=== PATIENT | female | born 1990 | race Caucasian/White ===

== ENCOUNTER → 2020-12-15 14:00 | Outpatient (BNVA) | payer BC, SELFPAY | PROVIDERS: Family Provider Family Medicine; PCP Family Medicine; Visit Provider Obstetrics & Gynecology | DX: Z34.90 Encounter for supervision of normal pregnancy, unspecified, unspecified trimester (principal) | CPT/HCPCS: 84144; 84702 ==

== ENCOUNTER → 2021-01-05 09:33 | Outpatient (BNVA) | payer BC, SELFPAY | PROVIDERS: Family Provider Family Medicine; PCP Family Medicine; Visit Provider Obstetrics & Gynecology | DX: Z34.90 Encounter for supervision of normal pregnancy, unspecified, unspecified trimester (principal) | CPT/HCPCS: 36415; 84144 ==

== ENCOUNTER 2022-05-17 12:59 | Outpatient (CLI) | payer BC, MEDICAID, SELFPAY ==
--- NOTE | 2022-05-17 13:03 | US_ITS ---
WS: [id number] TRANSABDOMINAL PELVIC AND TRANSVAGINAL PELVIC ULTRASOUND HISTORY: LEFT OVARIAN CYST/PELVIC PAIN COMPARISON: 09/30/2006 Uterus: 8.9 cm x 7.2 cm x 4.4 cm. Anteverted, slightly retroflexed uterus. On the transvaginal images the uterus becomes retroflexed. No fibroid or mass identified. Normal endometrium. Endometrium: 1.2 cm. Normal. Right ovary: 3.4 cm x 2.0 cm x 2.2 cm. Normal size ovary. Very small complex follicle associated with the ovary. Normal vascularity. Left ovary: 3.4 cm x 2.1 cm x 1.9 cm. Normal size and vascularity. Smaller free fluid in the fundus of the uterus. US/US pelvic with transvaginal IMPRESSION: Normal, unremarkable pelvic ultrasound.
== END 2022-05-17 13:00 | disposition home or self-care (01) ==
LOC: RAD 12:59
PROVIDERS: Family Provider Family Medicine; PCP Obstetrics & Gynecology; Visit Provider Obstetrics & Gynecology
DX: N83.202 Unspecified ovarian cyst, left side (principal); R10.2 Pelvic and perineal pain
CPT/HCPCS: 76830; 76856

== ENCOUNTER → 2022-08-29 13:56 | Outpatient (BNVA) | payer BC, MEDICAID, SELFPAY | PROVIDERS: Family Provider Family Medicine; PCP Obstetrics & Gynecology; Visit Provider Nurse Practitioner Family | DX: J02.9 Acute pharyngitis, unspecified (principal); R50.9 Fever, unspecified | CPT/HCPCS: 87071; 87400; 87880 ==

== ENCOUNTER → 2023-02-11 16:32 | Outpatient (BNVA) | payer BC, MEDICAID, SELFPAY | PROVIDERS: Family Provider Family Medicine; PCP Obstetrics & Gynecology; Visit Provider Nurse Practitioner Family | DX: E05.00 Thyrotoxicosis with diffuse goiter without thyrotoxic crisis or storm (principal); E55.9 Vitamin D deficiency, unspecified; E53.8 Deficiency of other specified B group vitamins; D64.9 Anemia, unspecified; E61.1 Iron deficiency | CPT/HCPCS: 80053; 82306; 82607; 82728; 83516; 83550; 83735; 84439; 84480; 85025 ==

== ENCOUNTER → 2023-09-04 09:19 | Outpatient (BNVA) | payer BC, MEDICAID, SELFPAY | PROVIDERS: Family Provider Family Medicine; PCP Obstetrics & Gynecology; Visit Provider Nurse Practitioner Family | DX: R10.9 Unspecified abdominal pain (principal) | CPT/HCPCS: 74018; 80053; 85025 ==

== ENCOUNTER 2023-12-30 12:57 | Emergency (ER) | payer BC, MEDICAID, SELFPAY ==
[2023-12-30 13:03] VITALS: BP 134/84; PULSE 126; RESP 20; TEMP 36.7; O2SAT 98
[2023-12-30 13:36] VITALS: BP 113/96; PULSE 98; RESP 17; O2SAT 99
--- NOTE | 2023-12-30 13:53 | US_ITS ---
WS: [id number] US transvaginal [id number] HISTORY: pelvic pain COMPARISON: 05/17/2022 Uterus: 8.7 cm x 5.7 cm x 4.9 cm. Normal size retroverted uterus. No fibroid or mass identified. Endometrium: 0.5 cm. Normal. Normal junctional zone. Right ovary: 3.1 cm x 1.9 cm x 2.7 cm. Normal size and vascularity, no cystic or solid masses. Multip le small follicles. Left ovary: 4.1 cm x 2.2 cm x 3.5 cm. Normal size and vascularity, no cystic or solid masses. Multipl e small follicles. Physiologic free fluid in the cul-de-sac. IMPRESSION: Normal transvaginal pelvic ultrasound.
--- NOTE | 2023-12-30 13:53 | CT_ITS ---
WS: [id number] CT ABDOMEN AND PELVIS NONCONTRAST HISTORY: LUQ/LLQ pain TECHNIQUE: Imaging performed through the abdomen and pelvis. Coronal and sagittal reformats are submi tted. All CT scans at [facility] use at least one of these dose optimization techniques: auto mated exposure control; mA and/or kV adjustment per patient size (includes targeted exams where dose is matched to clinical indication); or iterative reconstruction. DLP: 545.03 mGy.cm COMPARISON: 11/08/2009 Lower thorax: Lung bases are clear. Visualized heart is normal. No hiatal hernia. Bilateral breast im plants. Liver: Normal size liver. Variable density within the liver consistent with areas of hepatic steatosi s and sparing. No bile duct dilatation. Gallbladder: Contracted gallbladder. No adjacent inflammation. Pancreas: Normal size and attenuation. Normal pancreatic duct. No pancreatitis or mass. Spleen: Normal. Adrenal glands: Normal. No mass. Right kidney: Normal size kidney with no mass or hydronephrosis. Left kidney: Normal size kidney with no mass or hydronephrosis. Aorta: Normal abdominal aorta, no aneurysm or atherosclerosis. No free fluid, intraperitoneal air or significant lymphadenopathy. Nonpathologic lymph nodes RIGHT lo wer quadrant. GI tract: Normally distended stomach. No wall thickening. No small bowel obstruction. Normal appendix . No obstructive pattern. No colitis. Abdominal wall: Negative. No hernia. Pelvis: Negative. Osseous structures: Unremarkable. IMPRESSION: 1. No acute abdominal or pelvic abnormalities. 2. No renal stone or obstruction. No colitis. 3. Normal appendix.
[2023-12-30 14:07] LABS: HCG Qualitative Urine. Negative (Negative)
[2023-12-30 14:08] LABS: Basophils % 0.4 %; Eosinophils # 0.2 10^3/uL (0.0-0.8); Eosinophils % 1.7 %; Hematocrit 36.7 % (36-47); Lymphocytes # 2.5 10^3/uL (0.8-4.8); Lymphocytes % 25.4 %; Mean Corpuscular HGB Conc 32.7 g/dL (30-55); Mean Corpuscular Hemoglobin 29.7 pg (27-33); Mean Corpuscular Volume 90.8 fl (85-98); Mean Platelet Volume 9.1 fL (7.4-10.4); Monocytes # 0.5 10^3/uL (0.2-0.9); Monocytes % 4.8 %; Neutrophils # 6.52 10^3/uL (1.8-7.7); Neutrophils % 67.5 %; Nucleated Red Blood Cells % 0 %; Platelet Count 331 10^3/cmm (157-399); Red Blood Count 4.04 10^6/uL (3.85-5.65); White Blood Count 9.65 10^3/uL (3.29-11.43)
[2023-12-30 14:21] LABS: Alanine Aminotransferase 10 U/L (0-33); Albumin Level 4.5 g/dL (3.5-5.2); Alkaline Phosphatase 50 U/L (35-105); Anion Gap 12.8 (5-19); Aspartate Amino Transferase 12 U/L (0-32); Blood Urea Nitrogen 11 mg/dL (6-20); Calcium 9.2 mg/dL (8.5-10.5); Carbon Dioxide 26 mmol/L (22-29); Chloride 104 mmol/L (98-107); Creatinine Clr Calc Pharmacy 117.4973; Globulin 2.7 g/dL (1.3-4.6); Glomerular Filtration Rate 82.6 mL/min (90-130); Glucose 135 mg/dL (65-115); Lipase 29 U/L (13-60); Osmolality Calculated 289 mOsm/kg (285-295); Potassium 3.8 mmol/L (3.5-5.1); Sodium 139 mmol/L (136-145); Total Bilirubin 0.2 mg/dL (0.15-1.2); Total Protein 7.2 g/dL (6.6-8.7)
[2023-12-30 14:38] LABS: Add Urine Microscopic? YES; Bilirubin Urine Neg (Negative); Blood Urine 2+ (Negative); Glucose Urine UA Norm (Normal); Ketones Urine Negative (Negative); Leukocyte Esterase Urine Negative (Negative); Nitrate Urine Negative (Negative); Protein Urine Neg (Negative); Specific Gravity, Urine 1.005 (1.005-1.030); Urine Appearance Clear (CLEAR); Urine Color Light yellow (Yellow); Urobilinogen Urine Norm (Negative); pH Urine 5 (5-7)
[2023-12-30 14:40] LABS: Add Urine Culture? No; Bacteria Urine TRACE /hpf; RBC Urine 0-4 /hpf (0-2); Squamous Epithelial Cell Urine 0-4 /hpf (0-5)
--- NOTE | 2023-12-30 14:51 | ED_ITS ---
Documented by User: [email or web address] Fuentes 12/30/23 16:39 HPI - Abdominal Pain 2 General: Chief Complaint: Abdominal Pain Stated Complaint: abd pain Time Seen by Provider: 12/30/23 13:04 Source: patient Mode of arrival: ambulatory Limitations: no limitations History of Present Illness: Patient is a 33-year-old female presenting to the emergency department complaining of left-sided abdominal pain. When asked how long the patient has had the pain, she notes for a while and that last week she had an ultrasound that incidentally found an enlarged spleen. She notes that the ultrasound was supposed to be for transvaginal evaluation as she is having coinciding left lower quadrant pain. She reports that she has also had this pain for a while and that she is due to have an MRI soon, as she is allergic to the contrast dye and has been unable to get a CT. She notes a history of Graves' disease, noting that she is in remission and is not currently on any thyroid medications. She denies any urinary symptoms or vaginal symptoms. She denies history of kidney stone. She notes that the pain feels like 2 separate things as it is localized in the left upper quadrant, as well as left lower quadrant/suprapubic region. She denies any fevers, nausea or vomiting, or changes in bowel habits. Her pain seems to be intermittent as she notes that on the drive here she had an episode of getting very lightheaded and dizzy due to the pain. She denies possibility of . MD elicited complaint: abdominal pain Pertinent past history: other (Graves' disease) Onset (ago): unknown Pain Consistency: intermittent Location: LUQ and LLQ Severity: similar to previous episodes Radiation: none Migration to: no migration Exacerbating factors: nothing Relieving factors: nothing Associated Symptoms: Denies bloating, change in stool character, chills, constipation, diarrhea, dysuria, fever(s), hematochezia, nausea and vomiting Review of Systems 2 General: Reports: 10 or more systems reviewed and unremarkable except in HPI and below Const: Denies: fever(s), chills, change in appetite, change in weight or diaphoresis ENMT: Denies: throat pain or hoarseness Card: Reports: lightheadedness; Denies: chest pain or palpitations Resp: Denies: dyspnea, productive cough or wheezing GI: Reports: abdominal pain; Denies: nausea, vomiting, diarrhea, constipation, bloating, change in stool character or hematochezia : Denies: flank pain, difficulty voiding, dysuria, urinary frequency or urinary urgency Musc: Denies: neck pain or back pain Skin/Breast: Denies: rash or new lesions Neuro: Reports: dizziness; Denies: headache(s) PFSH ED 2 PFSH: Social History Smoking and tobacco/nicotine status: never used tobacco/nicotine Alcohol intake: never Substance/Drug Use: never Physical Exam 2 Const: COMMON NORMALS: average body habitus, patient oriented x3, no limitations, healthy appearing, alert and well nourished GENERAL APPEARANCE: cooperative, in distress (Pacing around the room in pain) and anxious O RIENTATION/CONSCIOUSNESS: Yes awake HENMT: COMMON NORMALS: normocephalic, atraumatic, hearing grossly normal bilaterally, external ears normal, Normal external nose present, Normal nasal mucous membranes and turbinates present and moist oral mucous membranes HEAD & SCALP: normocephalic and atraumatic NOSE: Normal external nose present and Normal nasal mucous membranes and turbinates present EXTERNAL EAR: Yes external ears normal Eye: COMMON NORMALS: Equal, round and reactive pupils present, EOMs intact bilaterally, conjunctivae normal and normal visual navarrete by confrontation C ONJUNCTIVA: Yes conjunctivae normal PUPIL: Yes Equal, round and reactive pupils present Neck/C-Spine: COMMON NORMALS: full ROM, supple, no meningeal signs and no JVD Resp: COMMON NORMALS: normal respiratory effort, No retractions, No use of accessory muscles and clear to auscultation bilaterally AUSCULTATION: clear to auscultation bilaterally, no crackles, no rales, no rhonchi and no wheezes Cardio: COMMON NORMALS: no JVD, regular rate, regular rhythm, S1 normal heart sound present, S2 normal heart sound present, No gallops present (Cardio), No clicks present (Cardio), No murmurs present (Cardio), No rub (Cardio) and Peripheral pulses 2+ throughout RATE: regular rate RHYTHM: regular rhythm HEART SOUNDS: S1 normal heart sound present and S2 normal heart sound present PERIPHERAL PULSES: Peripheral pulses 2+ throughout GI: COMMON NORMALS: Normal to inspection, nondistended, normoactive bowel sounds present, Soft to palpation and no masses AUSCULTATION: Yes normoactive bowel sounds PALPATION: Yes Soft to palpation, Yes Tenderness to palpation present (GI) Details: LLQ and LUQ, No Guarding due to palpation present (GI) and No Rigid due to palpation RECTAL EXAM: deferred : COMMON NORMALS: Yes no CVA tenderness BLADDER/KIDNEY EXAM: Yes no CVA tenderness Back/Pelvis: COMMON NORMALS: no CVA tenderness Extremity: COMMON NORMALS: normal to inspection and full ROM Neuro: COMMON NORMALS: patient oriented x3, moves all extremities, no focal motor deficits and no sensory deficits noted SENSORIUM/ORIENTATION: Yes alert MENINGEAL SIGNS: Yes no meningeal signs Psych: COMMON NORMALS: mental status grossly normal, cooperative and speech normal SPEECH: Yes normal speech Skin: COMMON NORMALS: no rashes or lesions noted GENERAL SKIN EXAM: no rashes or lesions noted Course 2 Vital Signs: Vital signs: Vital Signs Temperature 98.0 F 12/30/23 13:03 Pulse Rate 91 12/30/23 16:34 Respiratory Rate 16 12/30/23 16:34 Blood Pressure 129/84 12/30/23 16:34 Pulse Oximetry 99 12/30/23 16:34 Oxygen Delivery Me thod Room Air 12/30/23 15:36 MDM - Abdominal Pain Medical Decision Making This patient seen and evaluated in the emergency department today for acute on chronic left sided abdominal pain. Patient notes she had this pain previously worked up with an ultrasound that was unintentional and showed some reported splenomegaly. She notes that she has had the left lower quadrant pain for some time, and has been in talks with her primary care about get an MRI. However she is here today saying the pain is the worst ever been. She has gotten no relief from her [id number] remedies. Vitals on arrival unremarkable and she has remained stable throughout her ED course. Exam remarkable for some reproducible tenderness palpation of the left upper and left lower quadrant. Basic lab workup was negative, including normal CBC, CMP, lipase, TSH, and UA. Her EKG was also unremarkable. Pelvic ultrasound unremarkable. CT without contrast did not demonstrate any acute abdominal findings. She did note a history of Graves' disease, my reason for obtaining a TSH. She also notes that she is allergic to contrast dye, also reason for not obtaining CT with contrast. I believe patient's pain is most likely musculoskeletal in nature, as upon recheck following administration of Toradol, she notes improvement of the left lower quadrant pain and minimal improvement of the left upper quadrant pain. However, I cannot fully rule out a mesenteric ischemia/thrombus, though my clinical suspicion is very low at this time. I did have a thorough conversation with her in regards to reasons to return, including significant worsening of pain or changes in bowel habit. I did inform her to continue follow-up with primary care to obtain MRI if necessary. Other return precautions are given and patient agrees with discharge home. Lab Data I reviewed the patient's lab results. 12/30/23 13:38 12/30/23 13:38 Labs/Radiology: Laboratory Results WBC 9.65 10^3/uL (3.29-11.43) 12/30/23 13:38 RBC 4.04 10^6/uL (3.85-5.65) 12/30/23 13:38 Hgb 12.00 g/dL (11.27-16.99) 12/30/23 13:38 Hct 36.7 % (36-47) 12/30/23 13:38 MCV 90.8 fl (85-98) 12/30/23 13:38 MCH 29.7 pg (27-33) 12/30/23 13:38 MCHC 32.7 g/dL (30-55) 12/30/23 13:38 RDW 13.0 % (12.1-15.1) 12/30/23 13:38 Plt Count 331 10^3/cmm (157-399) 12/30/23 13:38 MPV 9.1 fL (7.4-10.4) 12/30/23 13:38 Neut % (Auto) 67.5 % 12/30/23 13:38 Lymph % (Auto) 25.4 % 12/30/23 13:38 [place] % (Auto) 4.8 % 12/30/23 13:38 Eos % (Auto) 1.7 % 12/30/23 13:38 Baso % (Auto) 0.4 % 12/30/23 13:38 Neut # (Auto) 6.52 10^3/uL (1.8-7.7) 12/30/23 13:38 Lymph # (Auto) 2.5 10^3/uL (0.8-4.8) 12/30/23 13:38 [place] # (Auto) 0.5 10^3/uL (0.2-0.9) 12/30/23 13:38 Eos # (Auto) 0.2 10^3/uL (0.0-0.8) 12/30/23 13:38 Baso # (Auto) 0.0 10^3/uL (0.0-0.1) 12/30/23 13:38 Nucleated RBC % (auto) 0 % 12/30/23 13:38 Nucleated RBCs # 0.0 /100WBC 12/30/23 13:38 Sodium 139 mmol/L (136-145) 12/30/23 13:38 Potassium 3.8 mmol/L (3.5-5.1) 12/30/23 13:38 Chloride 104 mmol/L (98-107) 12/30/23 13:38 Carbon Dioxide 26 mmol/L (22-29) 12/30/23 13:38 Anion Gap 12.8 (5-19) 12/30/23 13:38 BUN 11 mg/dL (6-20) 12/30/23 13:38 Creatinine 0.8 mg/dL (0.5-0.9) 12/30/23 13:38 GFR Calculation 82.6 mL/min (90-130) L 12/30/23 13:38 Glucose 135 mg/dL (65-115) H 12/30/23 13:38 Calculated Osmolality 289 mOsm/kg (285-295) 12/30/23 13:38 Calcium 9.2 mg/dL (8.5-10.5) 12/30/23 13:38 Total Bilirubin 0.2 mg/dL (0.15-1.2) 12/30/23 13:38 AST 12 U/L (0-32) 12/30/23 13:38 ALT 10 U/L (0-33) 12/30/23 13:38 Alkaline Phosphatase 50 U/L (35-105) 12/30/23 13:38 Total Protein 7.2 g/dL (6.6-8.7) 12/30/23 13:38 Albumin 4.5 g/dL (3.5-5.2) 12/30/23 13:38 Globulin 2.7 g/dL (1.3-4.6) 12/30/23 13:38 Lipase 29 U/L (13-60) 12/30/23 13:38 TSH 0.76 uIU/mL (0.27-4.20) 12/30/23 13:38 HCG, Qual Negative (Negative) 12/30/23 13:35 Urine Color Light yellow (Yellow) 12/30/23 13:35 Urine Appearance Clear (CLEAR) 12/30/23 13:35 Urine pH 5 (5-7) 12/30/23 13:35 Ur Specific [place] 1.005 (1.005-1.030) 12/30/23 13:35 Urine Protein Neg (Negative) 12/30/23 13:35 Urine Glucose (UA) Norm (Normal) 12/30/23 13:35 Urine Ketones Negative (Negative) 12/30/23 13:35 Urine Blood 2+ (Negative) H 12/30/23 13:35 Urine Nitrate Negative (Negative) 12/30/23 13:35 Urine Bilirubin Neg (Negative) 12/30/23 13:35 Urine Urobilinogen Norm mg/dL (Negative) 12/30/23 13:35 Ur Leukocyte Esterase Negative (Negative) 12/30/23 13:35 Urine RBC 0-4 /hpf (0-2) H 12/30/23 13:35 Urine WBC None /hpf (0-5) 12/30/23 13:35 Ur Squamous Epith Cells 0-4 /hpf (0-5) H 12/30/23 13:35 Amorphous Sediment Not Reportable 12/30/23 13:35 Urine Bacteria Trace /hpf (NONE) 12/30/23 13:35 All radiology interpretation(s) finalized by discharge Discharge Plan Discharge Patient Disposition: Home Clinical Impression: Strain of abdominal wall Qualifiers: Encounter type: initial encounter Qualified Code(s): S39.011A - Strain of muscle, fascia and tendon of abdomen, initial encounter Condition: Stable Prescriptions: New ketorolac 10 mg tablet 10 mg PO Q8H PRN (Reason: pain) Qty: 60 0RF No Action multivitamin Tablet 1 tab PO QAM ibuprofen 200 mg Tablet 400 mg PO Q6H PRN (Reason: Pain) Discharge Orders: Discharge ED (Routine); Ordered 12/30/23 Ordered By: Walter Perez Referrals: Marina Jones MD [Primary Care Provider] - Discharge Diet: Usual diet Discharge Activity: Increase activity as tolerated Patient Instructions: Abdominal Pain (ED) Activity Restrictions/Additional Instructions: Toradol as needed. Please follow-up with primary care as instructed for any further evaluation. Return if you develop any new concerning symptoms. Coding Level of Care Code ED Cardiovascular Technologist for Chg Fwd Documented by User: Jose Whelan DO 12/31/23 05:52 HPI - Abdominal Pain 2 General: Chief Complaint: Abdominal Pain Stated Complaint: abd pain Time Seen by Provider: 12/30/23 13:04 PFSH ED 2 PFSH: Social History Smoking and tobacco/nicotine status: never used tobacco/nicotine Alcohol intake: never Substance/Drug Use: never Course 2 Vital Signs: Vital signs: Vital Signs Temperature 98.0 F 12/30/23 13:03 Pulse Rate 91 12/30/23 16:34 Respiratory Rate 16 12/30/23 16:34 Blood Pressure 129/84 12/30/23 16:34 Pulse Oximetry 99 12/30/23 16:34 Oxygen Delivery Me thod Room Air 12/30/23 15:36 MDM - Abdominal Pain Medical Decision Making This patient seen and evaluated in the emergency department today for acute on chronic left sided abdominal pain. Patient notes she had this pain previously worked up with an ultrasound that was unintentional and showed some reported splenomegaly. She notes that she has had the left lower quadrant pain for some time, and has been in talks with her primary care about get an MRI. However she is here today saying the pain is the worst ever been. She has gotten no relief from her axhm-wrz-fzfeaqr remedies. Vitals on arrival unremarkable and she has remained stable throughout her ED course. Exam remarkable for some reproducible tenderness palpation of the left upper and left lower quadrant. Basic lab workup was negative, including normal CBC, CMP, lipase, TSH, and UA. Her EKG was also unremarkable. Pelvic ultrasound unremarkable. CT without contrast did not demonstrate any acute abdominal findings. She did note a history of Graves' disease, my reason for obtaining a TSH. She also notes that she is allergic to contrast dye, also reason for not obtaining CT with contrast. I believe patient's pain is most likely musculoskeletal in nature, as upon recheck following administration of Toradol, she notes improvement of the left lower quadrant pain and minimal improvement of the left upper quadrant pain. However, I cannot fully rule out a mesenteric ischemia/thrombus, though my clinical suspicion is very low at this time. I did have a thorough conversation with her in regards to reasons to return, including significant worsening of pain or changes in bowel habit. I did inform her to continue follow-up with primary care to obtain MRI if necessary. Other return precautions are given and patient agrees with discharge home. Chart reviewed Lab Data 12/30/23 13:38 12/30/23 13:38 Labs/Radiology: Laboratory Results WBC 9.65 10^3/uL (3.29-11.43) 12/30/23 13:38 RBC 4.04 10^6/uL (3.85-5.65) 12/30/23 13:38 Hgb 12.00 g/dL (11.27-16.99) 12/30/23 13:38 Hct 36.7 % (36-47) 12/30/23 13:38 MCV 90.8 fl (85-98) 12/30/23 13:38 MCH 29.7 pg (27-33) 12/30/23 13:38 MCHC 32.7 g/dL (30-55) 12/30/23 13:38 RDW 13.0 % (12.1-15.1) 12/30/23 13:38 Plt Count 331 10^3/cmm (157-399) 12/30/23 13:38 MPV 9.1 fL (7.4-10.4) 12/30/23 13:38 Neut % (Auto) 67.5 % 12/30/23 13:38 Lymph % (Auto) 25.4 % 12/30/23 13:38 [place] % (Auto) 4.8 % 12/30/23 13:38 Eos % (Auto) 1.7 % 12/30/23 13:38 Baso % (Auto) 0.4 % 12/30/23 13:38 Neut # (Auto) 6.52 10^3/uL (1.8-7.7) 12/30/23 13:38 Lymph # (Auto) 2.5 10^3/uL (0.8-4.8) 12/30/23 13:38 [place] # (Auto) 0.5 10^3/uL (0.2-0.9) 12/30/23 13:38 Eos # (Auto) 0.2 10^3/uL (0.0-0.8) 12/30/23 13:38 Baso # (Auto) 0.0 10^3/uL (0.0-0.1) 12/30/23 13:38 Nucleated RBC % (auto) 0 % 12/30/23 13:38 Nucleated RBCs # 0.0 /100WBC 12/30/23 13:38 Sodium 139 mmol/L (136-145) 12/30/23 13:38 Potassium 3.8 mmol/L (3.5-5.1) 12/30/23 13:38 Chloride 104 mmol/L (98-107) 12/30/23 13:38 Carbon Dioxide 26 mmol/L (22-29) 12/30/23 13:38 Anion Gap 12.8 (5-19) 12/30/23 13:38 BUN 11 mg/dL (6-20) 12/30/23 13:38 Creatinine 0.8 mg/dL (0.5-0.9) 12/30/23 13:38 GFR Calculation 82.6 mL/min (90-130) L 12/30/23 13:38 Glucose 135 mg/dL (65-115) H 12/30/23 13:38 Calculated Osmolality 289 mOsm/kg (285-295) 12/30/23 13:38 Calcium 9.2 mg/dL (8.5-10.5) 12/30/23 13:38 Total Bilirubin 0.2 mg/dL (0.15-1.2) 12/30/23 13:38 AST 12 U/L (0-32) 12/30/23 13:38 ALT 10 U/L (0-33) 12/30/23 13:38 Alkaline Phosphatase 50 U/L (35-105) 12/30/23 13:38 Total Protein 7.2 g/dL (6.6-8.7) 12/30/23 13:38 Albumin 4.5 g/dL (3.5-5.2) 12/30/23 13:38 Globulin 2.7 g/dL (1.3-4.6) 12/30/23 13:38 Lipase 29 U/L (13-60) 12/30/23 13:38 TSH 0.76 uIU/mL (0.27-4.20) 12/30/23 13:38 HCG, Qual Negative (Negative) 12/30/23 13:35 Urine Color Light yellow (Yellow) 12/30/23 13:35 Urine Appearance Clear (CLEAR) 12/30/23 13:35 Urine pH 5 (5-7) 12/30/23 13:35 Ur Specific [place] 1.005 (1.005-1.030) 12/30/23 13:35 Urine Protein Neg (Negative) 12/30/23 13:35 Urine Glucose (UA) Norm (Normal) 12/30/23 13:35 Urine Ketones Negative (Negative) 12/30/23 13:35 Urine Blood 2+ (Negative) H 12/30/23 13:35 Urine Nitrate Negative (Negative) 12/30/23 13:35 Urine Bilirubin Neg (Negative) 12/30/23 13:35 Urine Urobilinogen Norm mg/dL (Negative) 12/30/23 13:35 Ur Leukocyte Esterase Negative (Negative) 12/30/23 13:35 Urine RBC 0-4 /hpf (0-2) H 12/30/23 13:35 Urine WBC None /hpf (0-5) 12/30/23 13:35 Ur Squamous Epith Cells 0-4 /hpf (0-5) H 12/30/23 13:35 Amorphous Sediment Not Reportable 12/30/23 13:35 Urine Bacteria Trace /hpf (NONE) 12/30/23 13:35 Discharge Plan Discharge Patient Disposition: Home Clinical Impression: Strain of abdominal wall Qualifiers: Encounter type: initial encounter Qualified Code(s): S39.011A - Strain of muscle, fascia and tendon of abdomen, initial encounter Condition: Stable Prescriptions: New ketorolac 10 mg tablet 10 mg PO Q8H PRN (Reason: pain) Qty: 60 0RF No Action multivitamin Tablet 1 tab PO QAM ibuprofen 200 mg Tablet 400 mg PO Q6H PRN (Reason: Pain) Discharge Orders: Discharge ED (Routine); Ordered 12/30/23 Ordered By: Walter Perez Referrals: Marina Jones MD [Primary Care Provider] - Discharge Diet: Usual diet Discharge Activity: Increase activity as tolerated Patient Instructions: Abdominal Pain (ED) Activity Restrictions/Additional Instructions: Toradol as needed. Please follow-up with primary care as instructed for any further evaluation. Return if you develop any new concerning symptoms. Coding Level of Care Code ED Cardiovascular Technologist for Shruti Cleary
[2023-12-30] MEDS: ketorolac 60 mg/2 mL INJ IM (14:55)
--- NOTE | 2023-12-30 15:24 | ECG_ITS ---
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 Measurements Intervals Turner Rate: 87 P: 66 GA: 138 QRS: 74 QRSD: 86 T: 61 QT: 341 QTc: 411 Interpretive Statements SINUS RHYTHM WITH SINUS ARRHYTHMIA POSSIBLE LEFT ATRIAL ENLARGEMENT [-0.1mV P-WAVE IN V1/V2] NONSPECIFIC T-WAVE ABNORMALITY Compared to ECG 08/09/2016 13:31:39 Sinus tachycardia no longer present T-wave abnormality still present Electronically Signed On 12-30-2023 21:28:18 CDT by Josiane Houston M.D. [id number]
[2023-12-30 15:36] VITALS: PULSE 88; RESP 16; O2SAT 97
[2023-12-30 15:52] LABS: Thyroid Stimulating Hormone 0.76 uIU/mL (0.27-4.20)
[2023-12-30 16:34] VITALS: BP 129/84; PULSE 91; RESP 16; O2SAT 99
== END 2023-12-30 16:35 | disposition home or self-care (01) ==
PROVIDERS: Emergency Provider Physician Assistant; PCP Obstetrics & Gynecology
DX: S39.011A Strain of muscle, fascia and tendon of abdomen, initial encounter (principal); X58.XXXA Exposure to other specified factors, initial encounter
CPT/HCPCS: 36415; 74176; 76830; 80053; 81001; 81025; 83690; 84443; 85025; 93005; 96372; 99284; J1885

== ENCOUNTER → 2025-02-28 10:15 | Outpatient (BNVA) | payer BC, MEDICAID, SELFPAY | PROVIDERS: PCP Obstetrics & Gynecology; Visit Provider Family Medicine | DX: Z86.39 Personal history of other endocrine, nutritional and metabolic disease (principal); I48.91 Unspecified atrial fibrillation; R30.0 Dysuria | CPT/HCPCS: 84439; 84443; 84481 ==